=== PATIENT | male | born 1955 | race Caucasian/White ===

== ENCOUNTER → 2016-03-08 | Outpatient (CLI) | payer BC ==
--- NOTE | 2016-03-08 13:25 | XR ---
EXAMINATION TYPE: XR chest 2V DATE OF EXAM: 03/08/2016 9:53 AM COMPARISON: NONE HISTORY: Thoracic kyphosis, M40.204 TECHNIQUE: Frontal and lateral views of the chest are obtained. FINDINGS: There is marked chest wall deformity, there is been prior rib resection the third through fifth ribs laterally on the right with resulting volume loss in the upper aspect of the right hemitho rax greater than lower. There is no pneumothorax or pleural effusion evident, there is apical pleural thickening on the right. Cardiomediastinal silhouette, pulmonary vascularity and ruben within normal limits accounting for patient rotation. IMPRESSION: No acute cardiopulmonary process. Postop changes.
== END | disposition home or self-care (01) ==
LOC: RADXRMAIN 09:36
PROVIDERS: ATTEND Family Medicine
DX: M40.204 Unspecified kyphosis, thoracic region (principal); Z98.890 Other specified postprocedural states
CPT/HCPCS: 71020

== ENCOUNTER → 2016-05-03 | Outpatient (CLI) | payer BC ==
--- NOTE | 2016-05-03 12:14 | EST ---
DATE OF SERVICE: 05/03/2016 AGE: 60Y SEX: M HT: 71" WT: 175 lbs. Protocol Sage: X Other: Cardiolite Stress Stage: III Dur. of Exercise: 9:00 *Heart Rate Blood Pressure *Rest: 81 Rest: 195/93 * *Max. Achieved: 114 Maximum BP: 218/86 85% PMHR: 136 100% PMHR: 160 *METS: 10.0 INDICATIONS: Type 1 second degree heart block. MEDICATIONS: Multivitamin, baby aspirin. Baseline EKG shows sinus rhythm, normal axis, normal intervals. Patient exercised on Sage protocol for a total of 9 minutes, achieving 10 METs, 69% of predicted maximal heart rate without chest pain. The test had to be stopped at this stage because of EKG changes, fatigue and tiredness. At this level of workload, patient developed [address] segment depression. CONCLUSION: 1. Good exercise tolerance. 2. Abnormal EKG part of the stress test at submaximal workload. 3. Cardiolite portion of the stress test will be reported separately.
--- NOTE | 2016-05-03 13:57 | NM ---
EXAMINATION TYPE: NM stress cardiolite complete DATE OF EXAM: 05/03/2016 10:57 AM COMPARISON: NONE HISTORY: Av block 2n degree TECHNIQUE: After the intravenous administration of 10.6 mCi Tc 99m Sestamibi - Rest images obtained 60 minutes post injection. The patient exercised using a LALY protocol and 1 minute prior to peak exercise was injected with 27.2 mCi Tc 99m Sestamibi - Stress images obtained 30 minutes post injecti on. FINDINGS: Targeted heart rate was achieved during performance of the study. Review of stress and rest SPECT susanne ges demonstrates focal area of stress-induced reversibility involving the inferior and inferolateral myocardium.. Gated analysis shows normal wall motion with an estimated left ventricular ejection fra ction of 51 %. Report telephoned to the patient's referring physician. IMPRESSION: Positive for stress-induced reversible ischemia involving the inferior and inferolateral myocardium.
== END ==
LOC: RADNMMAIN 07:49
PROVIDERS: ATTEND Internal Medicine Cardiovascular Disease
DX: I44.1 Atrioventricular block, second degree (principal)
CPT/HCPCS: 93017; 78452; A9500

== ENCOUNTER → 2016-05-11 | Outpatient (CLI) | payer BC ==
--- NOTE | 2016-05-12 09:43 | ECHOF ---
Referral Reason:Systolic murmur R01.1 MEASUREMENTS -------- HEIGHT: 182.9 cm WEIGHT: 79.4 kg BP: IVSd: 1.3 cm (0.6 - 1.1) LVIDd: 3.6 cm (3.9 - 5.3) LVPWd: 1.2 cm (0.6 - 1.1) IVSs: 1.7 cm LVIDs: 2.3 cm LVPWs: 1.7 cm Ao Diam: 2.6 cm (2.0 - 3.7) AV Cusp: 1.0 cm (1.5 - 2.6) LA Diam: 1.8 cm (2.7 - 3.8) MV EXCURSION: 11.106 mm (> 18.000) MV EF SLOPE: 38 mm/s (70 - 150) EPSS: 0.7 cm MV E Lauro: 1.58 m/s MV DecT: 164 ms MV A Lauro: 1.48 m/s MV E/A Ratio: 1.07 AV maxP.95 mmHg AV meanP.04 mmHg AR PHT: 329 ms RAP: 5.00 mmHg RVSP: 13.79 mmHg FINDINGS -------- Sinus rhythm. This was a technically good study. There is mild concentric left ventricular hypertrophy. Overall left ventricular systolic function is normal with, an EF between 55 - 60 %. The right ventricle is normal in size and function. The left atrium is normal in size. The right atrium is normal in size. Aortic valve is trileaflet and is severely thickened. Trace amount of aortic regurgitation. There is moderate aortic stenosis present. Peak/mean gradient across the Aortic Valve is 28.95mmHg / 20.04mmHg. Can't exclude possible Bicuspid Aov. The mitral valve leaflets are mildly thickened. Mild mitral annular calcification present. Mild mitral regurgitation is present. Mild tricuspid regurgitation present. The right ventricular systolic pressure, as measured by Doppler, is 13.79mmHg. Pulmonic valve appears structurally normal. The aortic root size is normal. The pericardium is normal. CONCLUSIONS -------- 1. Sinus rhythm. 2. There is moderate aortic stenosis present. 3. Peak/mean gradient across the Aortic Valve is 28.95mmHg / 20.04mmHg. 4. Can't exclude possible Bicuspid Aov. 5. The mitral valve leaflets are mildly thickened. 6. Mild mitral annular calcification present. 7. Mild mitral regurgitation is present. 8. Mild tricuspid regurgitation present. 9. The right ventricular systolic pressure, as measured by Doppler, is 13.79mmHg. 10. Pulmonic valve appears structurally normal. 11. The aortic root size is normal. 12. This was a technically good study. 13. The pericardium is normal. 14. There is mild concentric left ventricular hypertrophy. 15. Overall left ventricular systolic function is normal with, an EF between 55 - 60 %. 16. The right ventricle is normal in size and function. 17. The left atrium is normal in size. 18. The right atrium is normal in size. 19. Aortic valve is trileaflet and is severely thickened. 20. Trace amount of aortic regurgitation. PLASTIC CUTTER: Nguyen Carmona RDCS
== END | disposition home or self-care (01) ==
LOC: RADECHMAIN 14:47
PROVIDERS: ATTEND Internal Medicine Cardiovascular Disease
DX: R01.1 Cardiac murmur, unspecified (principal)
CPT/HCPCS: 93306

== ENCOUNTER → 2016-09-15 | Outpatient (CLI) | payer BC ==
[2016-09-15 14:52] LABS: CH 26.2; CHCM 30.5; HCT 39.8 % (39.0-53.0); HDW 2.92; HGB 12.6 gm/dL (13.0-17.5); Hypochromasia Marked; MCH 27.1 pg (25.0-35.0); MCHC 31.5 g/dL (31.0-37.0); MCV 85.8 fL (80.0-100.0); Mean Platelet Volume 7.8; RBC 4.64 m/uL (4.30-5.90); RDW 15.8 % (11.5-15.5); WBC 8.8 k/uL (3.8-10.6)
[2016-09-15 15:00] LABS: Anion Gap 11 mmol/L; Blood Urea Nitrogen 14 mg/dL (9-20); Calcium 10.1 mg/dL (8.4-10.2); Carbon Dioxide 27 mmol/L (22-30); Chloride 103 mmol/L (98-107); Glucose 146 mg/dL (74-99); Non-African American GFR(MDRD) >60 (>60 ml/min/1.73 sqM); Potassium 4.7 mmol/L (3.5-5.1); Sodium 141 mmol/L (137-145)
== END ==
LOC: LABWHC1 14:18
PROVIDERS: ATTEND Nurse Practitioner Family
DX: I48.3 Typical atrial flutter (principal)
CPT/HCPCS: 36415; 80048; 85027

== ENCOUNTER 2018-06-08 09:54 | Day surgery (SDC) | payer BC ==
[2018-06-02 14:41] VITALS: BMI 25.1
[~2018-06-08 09:54] MED LIST: DEXAMETHASONE SOD PHOSPHATE 10 MG/ML 1 ML VIAL IV ONE; HEPARIN SODIUM,PORCINE 5,000 UNIT/ML 1 ML VIAL SQ ONE; LACTATED RINGERS 1,000 ML IV SCH; LIDOCAINE 1% 20 ML VIAL (10MG/ML) FOR IV START INTRADERMA PRN; MIDAZOLAM 2 MG/2 ML VIAL IV PRN; ONDANSETRON 4 MG/2 ML VIAL IVP ONE; Pre Op ABX Message 1 EACH MISC MISCELLANE ONE; fentaNYL (PF) 50 MCG/ML 2 ML AMP IV PRN
[2018-06-08 10:41] VITALS: RESP 16; TEMP 98.4
[2018-06-08] MEDS ORDERED: BUPIVACAIN-EPI 0.5%-1:200,000 30 ML VIAL SQ ONE ×2 (11:58)
[2018-06-08] MEDS ORDERED: PROPOFOL 10 MG/ML 20 ML VIAL IV ONE (13:36)
[2018-06-08] MEDS ORDERED: MIDAZOLAM 2 MG/2 ML VIAL ONE (13:36)
[2018-06-08] MEDS ORDERED: KETAMINE 10 MG/ML 20 ML VIAL ONE (13:36)
[2018-06-08] MEDS ORDERED: LIDOCAINE 1% INJ 10MG/ML (20 ML MDV) ONE (13:36)
[2018-06-08] MEDS ORDERED: fentaNYL (PF) 50 MCG/ML 2 ML AMP ONE (13:36)
[2018-06-08] MEDS ORDERED: SODIUM CHLORIDE 0.9% 50 ML with ceFAZolin (PMX-bag) 2,000 MG IV ONE ×2 (13:56)
[2018-06-08] MEDS ORDERED: BACITRACIN OINT 1 EACH PACKET TOPICAL ONE (14:13)
[2018-06-08] MEDS ORDERED: HYDROcodone/APAP 5-325MG 1 EACH TAB PO PRN (14:30)
[2018-06-08] MEDS ORDERED: NALOXONE 0.4 MG/ML 1 ML VIAL IV PRN (14:30)
--- NOTE | 2018-06-08 14:34 | P.PCN ---
Date of Procedure: 06/08/18 Procedure(s) Performed: PREOPERATIVE DIAGNOSIS: Upper back sebaceous cyst POSTOPERATIVE DIAGNOSIS: Same PROCEDURE: Excision SURGEON: Ania EBL: Minimal ANESTHESIA: Sedation COMPLICATIONS: None OPERATIVE PROCEDURE: Patient placed in the left decubitus position. The patient was sedated per anesthesia. The upper back was prepped and draped sterilely. An elliptical incision was made encompassing the draining sinus. Dissection through the subcutaneous tissues took place sharply. The patient's infected s ebaceous cyst sac was dissected fully using sharp dissection. The area was then irrigated. Size of the sebaceous cyst cavity 2.5 x 2 cm. Subcutaneous tissues were closed using 3-0 Vicryl sutures and the skin closed using 4-0 nylon sutures. Sterile dressings applied. DISPOSITION: Stable to recovery room
[2018-06-08 15:28] VITALS: BP 126/89; PULSE 75
== END 2018-06-08 15:36 | disposition home or self-care (01) ==
LOC: OR 09:54
PROVIDERS: ATTEND Surgery
DX: L72.0 Epidermal cyst (principal); I25.10 Atherosclerotic heart disease of native coronary artery without angina pectoris; E78.5 Hyperlipidemia, unspecified; Z95.1 Presence of aortocoronary bypass graft; Z85.118 Personal history of other malignant neoplasm of bronchus and lung; Z87.2 Personal history of diseases of the skin and subcutaneous tissue; Z79.82 Long term (current) use of aspirin; Z79.899 Other long term (current) drug therapy
CPT/HCPCS: 11403; 12031; J2250; J1644; J1100; J2405; J2001; J3010; J0690; J2704; 88304

== ENCOUNTER 2018-07-19 09:47 | Inpatient (IN) | payer BC ==
--- NOTE | 2018-07-19 10:09 | ED ---
SOB HPI - General Chief Complaint: Shortness of Breath Stated Complaint: SOB Time Seen by Provider: 07/19/18 09:56 Source: patient, RN notes reviewed Mode of arrival: ambulatory Limitations: no limitations - History of Present Illness Initial Comments: This is a 63-year-old male with a history of a three-way coronary artery bypass with valve replacement 2 years ago [facility] also with a history of a right lung resection at the age of 5 and 6 on 2 different occasions for a malignant tumor who states she's been having exertional dyspnea some shortness of breath last several days. He does state he was fishing he was in a cabinet had propane heater he states he felt better when he was outside of the cabin he got back last night so having some of the symptoms. 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 ROS Other: All systems not noted in ROS Statement are negative. 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,skin CA History of Any Multi-Drug Resistant Organisms: None Reported Past Surgical History: Coronary Bypass/CABG, Heart Catheterization Additional Past Surgical History / Comment(s): CABG-2016-04 vessel w/ aortic valve replacement,rt lung lower lobe and partial rib removal at ages 5 and 6 r/t-malignant tumors on lung,rib,muscle,skin Juan F removed Past Anesthesia/Blood Transfusion Reactions: No Reported Reaction Additional Past Anesthesia/Blood Transfusion Reaction / Comment(s): no known hx of blood transfusions Past Psychological History: No Psychological Hx Reported Smoking Status: Never smoker Past Alcohol Use History: None Reported Past Drug Use History: None Reported - Past Family History Mother Family Medical History: No Reported History General Exam - General Exam Comments Initial Comments: This a well-developed well-nourished awake alert oriented 3 male Limitations: no limitations General appearance: alert, in no apparent distress Head exam: Present: atraumatic, normocephalic, normal inspection Eye exam: Present: normal appearance, PERRL, EOMI. Absent: scleral icterus, conjunctival injection, periorbital swelling ENT exam: Present: normal exam, mucous membranes moist Neck exam: Present: normal inspection. Absent: tenderness, meningismus, lymphadenopathy Respiratory exam: Present: normal lung sounds bilaterally, other (Postop changes seen over the right chest wall with well-healed surgical scars and deformity noted.). Absent: respiratory distress, wheezes, rales, rhonchi, stridor Cardiovascular Exam: Present: normal rhythm, bradycardia, normal heart sounds, other (Occasional extrasystole). Absent: systolic murmur, diastolic murmur, rubs, gallop, clicks GI/Abdominal exam: Present: soft, normal bowel sounds. Absent: distended, tenderness, guarding, rebound, rigid Extremities exam: Present: normal inspection, full ROM, normal capillary refill. Absent: tenderness, pedal edema, joint swelling, calf tenderness Back exam: Present: normal inspection Neurological exam: Present: alert, oriented X3, CN II-XII intact Psychiatric exam: Present: normal affect, normal mood Skin exam: Present: warm, dry, intact, normal color. Absent: rash Course Vital Signs 07/19/18 07/19/18 07/19/18 09:50 11:54 13:33 Temperature 97.7 F 97.9 F Pulse Rate 41 L 37 L 37 L Respiratory 16 20 16 Rate Blood Pressure 183/66 169/63 145/51 O2 Sat by Pulse 98 99 99 Oximetry - Reevaluation(s) Reevaluation #1: 07/19/18 13:55 clinical research monitor: Medication bradycardia no PACs or PVCs seen on my examination heart rate was 37. Medical Decision Making - Lab Data Result diagrams: 07/19/18 10:30 07/19/18 10:30 Lab Results 07/19/18 07/19/18 07/19/18 Range/Units 10:30 10:30 10:30 WBC 8.9 (3.8-10.6) k/uL RBC 4.42 (4.30-5.90) m/uL Hgb 13.8 (13.0-17.5) gm/dL Hct 40.8 (39.0-53.0) % MCV 92.3 (80.0-100.0) fL MCH 31.2 (25.0-35.0) pg MCHC 33.8 (31.0-37.0) g/dL RDW 13.7 (11.5-15.5) % Plt Count 223 (150-450) k/uL Neutrophils % 75 % Lymphocytes % 15 % Monocytes % 7 % Eosinophils % 1 % Basophils % 1 % Neutrophils # 6.6 (1.3-7.7) k/uL Lymphocytes # 1.3 (1.0-4.8) k/uL Monocytes # 0.6 (0-1.0) k/uL Eosinophils # 0.1 (0-0.7) k/uL Basophils # 0.1 (0-0.2) k/uL PT 10.1 (9.0-12.0) sec INR 0.9 (<1.2) APTT 24.0 (22.0-30.0) sec D-Dimer 0.41 (<0.60) mg/L FEU Carbon Monoxide, Quant (<10.0) % Sodium 140 (137-145) mmol/L Potassium 4.7 (3.5-5.1) mmol/L Chloride 107 (98-107) mmol/L Carbon Dioxide 25 (22-30) mmol/L Anion Gap 8 mmol/L BUN 13 (9-20) mg/dL Creatinine 0.69 (0.66-1.25) mg/dL Est GFR (CKD-EPI)AfAm >90 (>60 ml/min/1.73 sqM) Est GFR (CKD-EPI)NonAf >90 (>60 ml/min/1.73 sqM) Glucose 81 (74-99) mg/dL Calcium 10.4 H (8.4-10.2) mg/dL Magnesium 2.3 (1.6-2.3) mg/dL Total Bilirubin 0.8 (0.2-1.3) mg/dL AST 40 (17-59) U/L ALT 57 (21-72) U/L Alkaline Phosphatase 100 (38-126) U/L Creatine Kinase 104 (55-170) U/L Troponin I (0.000-0.034) ng/mL NT-Pro-B Natriuret Pep pg/mL Total Protein 7.2 (6.3-8.2) g/dL Albumin 4.5 (3.5-5.0) g/dL 07/19/18 07/19/18 07/19/18 Range/Units 10:30 10:30 10:30 WBC (3.8-10.6) k/uL RBC (4.30-5.90) m/uL Hgb (13.0-17.5) gm/dL Hct (39.0-53.0) % MCV (80.0-100.0) fL MCH (25.0-35.0) pg MCHC (31.0-37.0) g/dL RDW (11.5-15.5) % Plt Count (150-450) k/uL Neutrophils % % Lymphocytes % % Monocytes % % Eosinophils % % Basophils % % Neutrophils # (1.3-7.7) k/uL Lymphocytes # (1.0-4.8) k/uL Monocytes # (0-1.0) k/uL Eosinophils # (0-0.7) k/uL Basophils # (0-0.2) k/uL PT (9.0-12.0) sec INR (<1.2) APTT (22.0-30.0) sec D-Dimer (<0.60) mg/L FEU Carbon Monoxide, Quant 1.4 (<10.0) % Sodium (137-145) mmol/L Potassium (3.5-5.1) mmol/L Chloride (98-107) mmol/L Carbon Dioxide (22-30) mmol/L Anion Gap mmol/L BUN (9-20) mg/dL Creatinine (0.66-1.25) mg/dL Est GFR (CKD-EPI)AfAm (>60 ml/min/1.73 sqM) Est GFR (CKD-EPI)NonAf (>60 ml/min/1.73 sqM) Glucose (74-99) mg/dL Calcium (8.4-10.2) mg/dL Magnesium (1.6-2.3) mg/dL Total Bilirubin (0.2-1.3) mg/dL AST (17-59) U/L ALT (21-72) U/L Alkaline Phosphatase (38-126) U/L Creatine Kinase (55-170) U/L Troponin I <0.012 (0.000-0.034) ng/mL NT-Pro-B Natriuret Pep 706 pg/mL Total Protein (6.3-8.2) g/dL Albumin (3.5-5.0) g/dL - EKG Data -: EKG Interpreted by Me EKG shows normal: sinus rhythm (Says bradycardia QRS 12 QT since QTC 608/678 low-voltage nonspecific anterior changes prolonged QT heart rate approximately 35) - Radiology Data Radiology results: report reviewed (I did review the imaging and report no definite evidence of acute findings.), image reviewed Disposition Clinical Impression: Symptomatic bradycardia, Dyspnea Disposition: ADMITTED IP TO THIS [facility] Condition: Stable Referrals: Terence Regan DO [Primary Care Provider] - 1-2 days
--- NOTE | 2018-07-19 11:01 | XR ---
EXAMINATION TYPE: XR chest 2V DATE OF EXAM: 07/19/2018 COMPARISON: Prior chest x-ray 03/08/2016 HISTORY: Difficulty breathing, shortness of breath TECHNIQUE: Frontal and lateral views of the chest are obtained. FINDINGS: Chest wall deformity, post median sternotomy changes are again noted. Heart size is though t to be increased although patient is rotated which may accentuate appearance. There is interval blun ting of the left costophrenic angle. No evident pneumothorax. There are overlying cardiac leads, yeni ent is post cardiac valve replacement. IMPRESSION: Interval development of a left pleural effusion, bodies could be due to chronic pleural reaction, atelectasis versus scarring. Postop changes.
[2018-07-19 11:21] LABS: Basophils # (A) 0.1 k/uL (0-0.2); Basophils % (A) 1 %; Eosinophils # (A) 0.1 k/uL (0-0.7); Eosinophils % (A) 1 %; HCT 40.8 % (39.0-53.0); HGB 13.8 gm/dL (13.0-17.5); Lymphocytes # (A) 1.3 k/uL (1.0-4.8); Lymphocytes % (A) 15 %; MCH 31.2 pg (25.0-35.0); MCHC 33.8 g/dL (31.0-37.0); MCV 92.3 fL (80.0-100.0); Mean Platelet Volume 8.6; Monocytes # (A) 0.6 k/uL (0-1.0); Monocytes % (A) 7 %; Neutrophils # (A) 6.6 k/uL (1.3-7.7); Neutrophils % (A) 75 %; Platelet Count 223 k/uL (150-450); RBC 4.42 m/uL (4.30-5.90); RDW 13.7 % (11.5-15.5); WBC 8.9 k/uL (3.8-10.6)
[2018-07-19 11:28] LABS: ALT 57 U/L (21-72); AST 40 U/L (17-59); Albumin 4.5 g/dL (3.5-5.0); Alkaline Phosphatase 100 U/L (38-126); Anion Gap 8 mmol/L; Blood Urea Nitrogen 13 mg/dL (9-20); Calcium 10.4 mg/dL (8.4-10.2); Carbon Dioxide 25 mmol/L (22-30); Chloride 107 mmol/L (98-107); Creatine Kinase 104 U/L (55-170); Glucose 81 mg/dL (74-99); Magnesium 2.3 mg/dL (1.6-2.3); Potassium 4.7 mmol/L (3.5-5.1); Sodium 140 mmol/L (137-145); Total Bilirubin 0.8 mg/dL (0.2-1.3); Total Protein 7.2 g/dL (6.3-8.2)
[2018-07-19 11:54] LABS: D-Dimer 0.41 mg/L FEU (<0.60); INR 0.9 (<1.2); Prothrombin Time 10.1 sec (9.0-12.0)
[2018-07-19] MEDS ORDERED: NALOXONE 0.4 MG/ML 1 ML VIAL IV PRN (13:56)
--- NOTE | 2018-07-19 15:18 | P.HPIM ---
History of Present Illness H&P Date: 07/19/18 Chief Complaint: Severe dyspnea and shortness of breath, symptomatic severe bradycardia, ath 63-year-old male one of Dr. 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 Patient seen Dr. Queen edge sander at [facility] and before his open heart surgery was seen by rotor blade installer at [facility] for a can degree heart block might require pacemaker at the time and with his open heart surgery the severity of the bradycardia and second-degree had resolved done well for the last 20 have few years. Patient has been having worsening dyspnea and shortness of breath with minimal exertion with severe tiredness fatigue no chest pain but positive significant shortness of breath no cough or wheezes no syncope so far patient is very tired week and having fatigue symptoms. Ended up coming to the emergency department at [facility] his pulse on EKG and site monitor was very slow running in the 30s symptomatic patient also had second-degree heart block. Laboratory testing showed mildly elevated calcium level chest x-ray showed interval development of left pleural effusion with a chronic pleural reaction and atelectasis with change post surgery from his right lung resection. Thyroid testing will be added patient will be hospitalized he monitor overnight will be seen cardiology CK with troponin will be done and if remained bradycardic symptomatic patient might require pacemaker. Review of Systems CONSTITUTIONAL: Well-developed no acute respiratory distress. EYES: No icterus sclerae, no conjunctivitis. EARS, NOSE, MOUTH, THROAT, and FACE: No sore throat, lymphadenopathy, carotid bruits or deformity. RESPIRATORY: Positive dyspnea and shortness of breath. CARDIOVASCULAR: Positive bradycardia palpitation no angina. GASTROINTESTINAL: No Abd pain, Nausea or vomiting, no Diarrhea or constipation, No GI Bleed, no distention or masses. GENITOURINARY: Negative for Hematuria or UTI, no kidney stones. INTEGUMENT/BREAST: Negative for any muscular injury with mild osteoarthritis.. HEMATOLOGIC/LYMPHATIC: Negative for bleed or purpura. MUSCULOSKELTAL: Negative for Myalgia or arthralgia. NEURLOGICAL: No LOC, Sz or syncope, blurred vision dizziness or abnormality.. BEHAVIORAL/PSYCH: Negative. ENDOCRINE: Negative. 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,skin CA History of Any Multi-Drug Resistant Organisms: None Reported Past Surgical History: Coronary Bypass/CABG, Heart Catheterization Additional Past Surgical History / Comment(s): CABG-2016-04 vessel w/ aortic valve replacement,rt lung lower lobe and partial rib removal at ages 5 and 6 r/t-malignant tumors on lung,rib,muscle,skin Juan F removed Past Anesthesia/Blood Transfusion Reactions: No Reported Reaction Additional Past Anesthesia/Blood Transfusion Reaction / Comment(s): no known hx of blood transfusions Past Psychological History: No Psychological Hx Reported Smoking Status: Never smoker Past Alcohol Use History: None Reported Past Drug Use History: None Reported - Past Family History Mother Family Medical History: No Reported History Medications and Allergies Home Medications Medication Instructions Recorded Confirmed Type Aspirin 81 mg PO DAILY 06/02/18 07/19/18 History Atorvastatin [Lipitor] 40 mg PO DAILY 06/02/18 07/19/18 History Multivitamins, Thera [Multivitamin 1 tab PO DAILY 06/02/18 07/19/18 History (formulary)] Allergies Allergy/AdvReac Type Severity Reaction Status Date / Time No Known Allergies Allergy Verified 07/19/18 09:58 Physical Exam Vitals: Vital Signs Temp Pulse Resp BP Pulse Ox 07/19/18 13:33 97.9 F 37 L 16 145/51 99 07/19/18 11:54 37 L 20 169/63 99 07/19/18 09:50 97.7 F 41 L 16 183/66 98 Intake and Output 07/19/18 07/19/18 07/19/18 06:59 14:59 22:59 Other: Weight 83.915 kg General Appearance: Alert, cooperative, no distress, appears stated age. Neck HEENT: Supple, no lymphadenopathy, no thyroid enlargement, no carotid bruits. Lungs: Decreased breath sounds specially in the right side with fine rhonchi no crackles or wheezes. Chest Wall: Chest wall deformity with his resection of the right side with a scar tissue on the posterior part of the lung and the scapular the same time with no breath sound of the right side left side had significant decrease expansion. Heart: Irregular rhythm and rate S1-S2 positive severe bradycardia positive S3 positive aortic valve click.. Back: Symmetric, no curvature, ROM normal, no CVA tenderness. Abdomen: Soft, non-tender, bowel sounds active all four quadrants, no masses, no organomegaly. Extremities: Extremities normal, atraumatic, no cyanosis or edema. Pulses: 2+ and symmetric. Skin: Skin color, texture, tugor normal, no rashes or lesions. Neurologic: Alert oriented x3 cranial nerves II through XII intact, no motor deficit, no abnormal balance or gait. Results CBC & Chem 7: 07/19/18 10:30 07/19/18 10:30 Labs: Abnormal Lab Results - Last 24 Hours (Table) 07/19/18 Range/Units 10:30 Calcium 10.4 H (8.4-10.2) mg/dL Thrombosis Risk Factor Assmnt - DVT/VTE Prophylaxis DVT/VTE Prophylaxis: Pharmacologic Prophylaxis ordered, Mechanical Prophylaxis ordered Assessment and Plan Plan: 1 Severe dyspnea and shortness of breath: Most likely from severe bradycardia, patient be hospitalized continue O2 supportive care watch for any other secondary reason at this point no sign of infection with his significant decrease lung volumes with his right sided dissection patient had mild to moderate degree of restrictive lung disease and mild obstructive lung disease but no symptoms up till now. 2 severe symptomatic bradycardia: With second-degree AV block, patient is known to have history of coronary artery disease not a clear whether this is a primary or secondary to other phenomenon of his coronary artery patient might require further testing cardiovascular further intervention, patient be seen cardiology whether to go for just a plain stress test and echo or any further testing to be determined by cardiology also will be interesting to watch patient pulse rate through the night and see how slow his pulse will be. 3 hyperlipidemia: Patient is on atorvastatin continue medication. 4 mild hypercalcemia not explained will repeat calcium level and ionized calcium along with PTH with the blood work tomorrow. 5 BPH: Watch for any urinary retention. 6 GI prophylaxis: Patient will be on Pepcid 20 mg daily. 7 DVT prophylaxis: Knee-high MIHAELA hose early mobilization and if needed subcutaneous heparin will be done. CODE STATUS: Full code. Admit patient to inpatient status for more than 2 nights.
--- NOTE | 2018-07-19 17:17 | P.CRDCN ---
History of Present Illness Consult date: 07/19/18 Requesting physician: Randall Hamlin Reason for Consult (text): Bradycardia Chief complaint: Shortness of breath History of present illness: This is a pleasant 63-year-old gentleman who has a past medical history significant for three-vessel coronary artery bypass grafting surgery with aortic valve replacement performed at [facility], performed a few years ago, he does also have a history of hyperlipidemia, he is a nondiabetic, no hypertension, nonsmoker. Patient also has a history of a right- sided lung malignant tumor, for which she underwent AP resection with kassandra nstruction on the right side, this was when he was a child, overall he has done very well. He follows with Dr. Queen at [facility]. Patient overall is quite physically active, and he usually wears his foot that all of the time to monitor the amount of exercise he is getting. Apparently the patient went up [place], on [place] trip, he states that he became quite short of breath just attempting to do minimally exertional activities. It was noted on his Cipro at that his heart rate was running in the 30-40 range, patient became concerned and came home. He denies having any chest discomfort, no dizziness or lightheadedness, but does state that he's feeling extremely tired over the past couple of weeks. According to the patient, he had been told in the past to have a very slow heartbeat, this was at the time prior to his bypass surgery, he was seen by an magnesium mill operator at [place], who felt that his problem was more related to coronary artery disease, and subsequently the patient underwent bypass surgery. He never had a pacemaker placed at that time. His EKG on presentation here shows a second-degree heart block type II with a heart rate in the 40s. His chest x-ray shows interval development of a left-sided pleural effusion. Blood pressure 145/50 with a heart rate in the 30s, 99% on 2 L of oxygen. White blood cell count 8.9, hemoglobin 13.8, platelet count 223. D- dimer 0.4. Sodium 140, potassium 4.7, BUN 1 and creatinine 0.6. Sodium 140, potassium 4.7, BUN 13 and creatinine 0.6, magnesium 2.3, troponin 0.012. BNP level 706. At the time of my examination in the emergency room, patient is sitting up at bedside, denies any shortness of breath at present, does feel tired. Continues to be in a second-degree type II heart block with a heart rate in the 30s. 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,skin CA History of Any Multi-Drug Resistant Organisms: None Reported Past Surgical History: Coronary Bypass/CABG, Heart Catheterization Additional Past Surgical History / Comment(s): CABG-2016-04 vessel w/ aortic valve replacement,rt lung lower lobe and partial rib removal at ages 5 and 6 r/t-malignant tumors on lung,rib,muscle,skin Juan F removed Past Anesthesia/Blood Transfusion Reactions: No Reported Reaction Additional Past Anesthesia/Blood Transfusion Reaction / Comment(s): no known hx of blood transfusions Past Psychological History: No Psychological Hx Reported Smoking Status: Never smoker Past Alcohol Use History: None Reported Past Drug Use History: None Reported - Past Family History Mother Family Medical History: No Reported History Medications and Allergies Home Medications Medication Instructions Recorded Confirmed Type Aspirin 81 mg PO DAILY 06/02/18 07/19/18 History Atorvastatin [Lipitor] 40 mg PO DAILY 06/02/18 07/19/18 History Multivitamins, Thera [Multivitamin 1 tab PO DAILY 06/02/18 07/19/18 History (formulary)] Allergies Allergy/AdvReac Type Severity Reaction Status Date / Time No Known Allergies Allergy Verified 07/19/18 09:58 Physical Exam Vitals: Vital Signs Temp Pulse Resp BP Pulse Ox 07/19/18 15:35 98 F 37 L 18 145/51 99 07/19/18 13:33 97.9 F 37 L 16 145/51 99 07/19/18 11:54 37 L 20 169/63 99 07/19/18 09:50 97.7 F 41 L 16 183/66 98 Intake and Output 07/19/18 07/19/18 07/19/18 06:59 14:59 22:59 Other: Weight 83.915 kg PHYSICAL EXAMINATION: GENERAL: 63-year-old gentleman in no acute distress at the time of my examination HEENT: Head is atraumatic, normocephalic. Pupils equal, round. Sclera anicteric. Conjunctiva are clear. Mucous membranes of the mouth are moist. Neck is supple. There is no elevated jugular venous pressure. No carotid bruit is heard. HEART EXAMINATION: S1 and S2, positive aortic valve click is heard CHEST EXAMINATION: Lungs are clear with diminished air entry bilaterally, there is scar tissue noted on the posterior part of the lung at the scapula region on the right side ABDOMEN: Soft, nontender. Bowel sounds are heard. No organomegaly noted. EXTREMITIES: 2+ peripheral pulses with no evidence of peripheral edema and no calf tenderness noted. NEUROLOGIC patient is awake, alert and oriented 3 . . Results 07/19/18 10:30 07/19/18 10:30 Cardiac Enzymes 07/19/18 07/19/18 Range/Units 10:30 10:30 AST 40 (17-59) U/L Troponin I <0.012 (0.000-0.034) ng/mL Coagulation 07/19/18 Range/Units 10:30 PT 10.1 (9.0-12.0) sec APTT 24.0 (22.0-30.0) sec CBC 07/19/18 Range/Units 10:30 WBC 8.9 (3.8-10.6) k/uL RBC 4.42 (4.30-5.90) m/uL Hgb 13.8 (13.0-17.5) gm/dL Hct 40.8 (39.0-53.0) % Plt Count 223 (150-450) k/uL Comprehensive Metabolic Panel 07/19/18 Range/Units 10:30 Sodium 140 (137-145) mmol/L Potassium 4.7 (3.5-5.1) mmol/L Chloride 107 (98-107) mmol/L Carbon Dioxide 25 (22-30) mmol/L BUN 13 (9-20) mg/dL Creatinine 0.69 (0.66-1.25) mg/dL Glucose 81 (74-99) mg/dL Calcium 10.4 H (8.4-10.2) mg/dL AST 40 (17-59) U/L ALT 57 (21-72) U/L Alkaline Phosphatase 100 (38-126) U/L Total Protein 7.2 (6.3-8.2) g/dL Albumin 4.5 (3.5-5.0) g/dL Current Medications Generic Name Dose Route Start Last Admin Trade Name Freq PRN Reason Stop Dose Admin Aspirin 81 mg 07/20/18 09:00 Aspirin PO DAILY [facility] Atorvastatin Calcium 40 mg 07/20/18 09:00 Lipitor PO DAILY JASON Famotidine 20 mg 07/20/18 09:00 Pepcid PO DAILY JASON Sodium Chloride 1,000 mls @ 20 mls/hr 07/19/18 14:00 Saline 0.9% IV .Q24H JASON Multivitamins 1 each 07/20/18 09:00 Theragran PO DAILY JASON Naloxone HCl 0.2 mg 07/19/18 13:56 Narcan IV Q2M PRN Opioid Reversal Intake and Output 07/19/18 07/19/18 07/19/18 06:59 14:59 22:59 Other: Weight 83.915 kg Patient Weight 07/20/18 06:59 Weight 83.915 kg 07/19/18 10:30 07/19/18 10:30 EKG Interpretations (text) EKG shows a second-degree type II heart block with a heart rate in the 40s Assessment and Plan Plan: Assessment and plan #1 symptoms of exertional dyspnea with associated fatigue and tiredness, could be secondary to severe bradycardia. Patient is in second degree type II heart block #2 hyperlipidemia #3 known history of coronary artery disease with prior triple vessel coronary artery bypass grafting surgery and tissue aortic valve replacement a few years ago at [facility] #4 hyperlipidemia Plan We will obtain an echocardiogram with Doppler study as well as a TSH level. Patient is currently not on any rate lowering medications at home. It has been explained to the patient and his that he may need to undergo implantation of a permanent pacemaker. We will continue to monitor the patient and further recommendations then will be made. DNP note has been reviewed, I agree with a documented findings and plan of care. Patient was seen and examined.
[2018-07-19 18:24] VITALS: BMI 25.7
[2018-07-19] MEDS: SODIUM CHLORIDE 0.9% 1,000 ML IV SCH (18:28)
[2018-07-20] MEDS ORDERED: ceFAZolin IN SWFI 2 GM/20 ML SYRINGE IVP ONE (07:45)
[2018-07-20] MEDS ORDERED: SODIUM CHLORIDE 0.9% 1,000 ML IV SCH (07:45)
[2018-07-20] MEDS: ATORVASTATIN 40 MG TAB PO SCH (09:01)
[2018-07-20] MEDS: FAMOTIDINE 20 MG TAB PO SCH (09:01)
[2018-07-20] MEDS: ASPIRIN 81 MG PO SCH (09:01)
[2018-07-20] MEDS: MULTIVITAMINS, THERA 1 EACH TAB PO SCH (09:03)
[2018-07-20] MEDS ORDERED: PROPOFOL 10 MG/ML 20 ML VIAL IV ONE (10:04)
[2018-07-20] MEDS ORDERED: fentaNYL (PF) 50 MCG/ML 2 ML AMP ONE (10:04)
[2018-07-20] MEDS ORDERED: MIDAZOLAM 2 MG/2 ML VIAL ONE (10:04)
[2018-07-20] MEDS ORDERED: IV FLUID CONTINUATION 400 ML IV ONE ×2 (10:10)
[2018-07-20] MEDS ORDERED: LIDOCAINE 1% INJ 10MG/ML (20 ML MDV) ONE (10:33)
--- NOTE | 2018-07-20 10:33 | PN ---
PROGRESS NOTE Mr. Alvarez is a 63-year-old male with a history of aortic valve replacement and coronary artery bypass grafting, who presented with symptoms of progressive dyspnea and fatigue, was noted to be an episode of 2-1 conduction and at times complete heart block. He had some dyspnea with mild activity yesterday. He has no syncope. No chest pain. There is no evidence of ventricular ectopic activity. He continues to be at this time on aspirin once a day and Lipitor 40 mg daily. PHYSICAL EXAMINATION: VITAL SIGNS: Blood pressure 160/60 with a heart rate in the 40s. LUNGS: Clear. HEART: Regular rate and rhythm, S1, S2. No S3 with systolic ejection murmur. No diastolic murmur. No rub. ABDOMEN: Soft, nontender. EXTREMITIES: No edema. LAB DATA: Lab data revealed troponin less than 0.012. His TSH is 2.5, hemoglobin of 13.8. IMPRESSION: 1. Complete heart block with episode of 2-1 conduction as well, consistent with high- grade AV block. 2. Status post coronary artery bypass grafting, aortic valve replacement. 3. Hyperlipidemia. RECOMMENDATION: The patient would require permanent pacemaker implantation today. He was seen by Dr. Ocasio. He will undergo the procedure today. We will review the results of his echocardiogram. Depending on his progress, further recommendations will be made. MMODL / IJN: [id number] /
--- NOTE | 2018-07-20 10:34 | P.PN ---
Progress Note - Text Patient interviewed. Chart reviewed Presented with symptoms of shortness of breath tiredness and fatigue with a very slow heart rate Thinking back he states that he's been having these symptoms for some time but they were intermittent. This is been going on for at least 2 years nightly Twelve-lead ECG shows sinus rhythm 2-1 AV block narrow QRS ST segment elevation with T-wave inversion in V1 and V2 2-D echo shows overall preserved LV systolic function with thickening of the septum and anterior wall with a very localized area of dyskinesis Bioprosthetic valve in stable position Normal potassium Suggest In view of 2-1 AV block with severe bradycardia, without any reversible cause I would recommend permanent pacing The issues are that he has a high risk of 100% RV pacing in the future with a standard pacing system hence I would recommend biventricular pacing either with physiologic septal pacing or LV pacing He also has a clear thin area of the septum with localized dyskinesis despite the fact that his overall LV function is preserved I will implant an ICD lead in place of and RV pacing lead A biventricular pacing system will be implanted Beta blockers thereafter Discussed with family and patient
[2018-07-20] MEDS ORDERED: IOPAMIDOL-250 50ML BTL IV ONE (10:37)
[2018-07-20] MEDS ORDERED: LIDOCAINE 1% INJ 10MG/ML (20 ML MDV) SQ ONE (10:43)
[2018-07-20] MEDS: ceFAZolin 1,000 MG in SODIUM CHLORIDE 0.9% IRRIGATIO 250 ML IRRIGATION ONE ×2 (10:46→12:33)
[2018-07-20] MEDS ORDERED: ceFAZolin IN SWFI 2 GM/20 ML SYRINGE IVP STA (12:58)
[2018-07-20] MEDS ORDERED: ACETAMINOPHEN TAB 325 MG TAB PO PRN ×2 (14:59→15:01)
[2018-07-20] MEDS ORDERED: ACETAMINOPHEN IV (For NPO) 1,000 MG in EMPTY BAG 1 BAG IVPB ONE (15:01)
[2018-07-20] MEDS ORDERED: HYDROcodone/APAP 5-325MG 1 EACH TAB PO PRN (15:01)
[2018-07-20] MEDS: ceFAZolin IN SWFI 2 GM/20 ML SYRINGE IVP SCH ×2 (15:43→22:02)
[2018-07-20] MEDS: SODIUM CHLORIDE 0.9% 1,000 ML IV SCH ×2 (15:43→15:44)
--- NOTE | 2018-07-20 15:55 | P.PN ---
Subjective Progress Note Date: 07/20/18 63-year-old male one of Dr. Castro patient with past medical history of atherosclerotic heart disease post triple bypass few years ago at [facility] also has known to have valvular heart disease post aortic valve placement and right-sided lung lower lobe malignant tumor post re section with reconstruction of the muscle in the rib in the right side done twice at age 5 and 6 when he was baby patient had survived been done well. Patient seen Dr. Queen livestock nutritionist at [facility] and before his open heart surgery was seen by atomizer assembler at [facility] for a can degree heart block might require pacemaker at the time and with his open heart surgery the severity of the bradycardia and second-degree had resolved done well for the last 20 have few years. Patient has been having worsening dyspnea and shortness of breath with minimal exertion with severe tiredness fatigue no chest pain but positive significant shortness of breath no cough or wheezes no syncope so far patient is very tired week and having fatigue symptoms. Ended up coming to the emergency department at [facility] his pulse on EKG and equipment monitor phototypesetting was very slow running in the 30s symptomatic patient also had second-degree heart block. Laboratory testing showed mildly elevated calcium level chest x-ray showed interval development of left pleural effusion with a chronic pleural reaction and atelectasis with change post surgery from his right lung resection. Thyroid testing will be added patient will be hospitalized he monitor overnight will be seen cardiology CK with troponin will be done and if remained bradycardic symptomatic patient might require pacemaker. 07/20: Patient denies any new complaints. He denies any chest pain, shortness of breath, palpitations. He is scheduled for pacemaker implantation today with Dr. Ocasio. Multiple family members are at the bedside and all questions have been answered. Patient has been afebrile, heart rate was in the 40s, blood pressure 160/69, pulse ox 97% on room air. A TSH was 2.500. Objective - Vital Signs Vital signs: Vital Signs Temp 98.6 F 07/20/18 04:00 Pulse 43 L 07/20/18 04:00 Resp 18 07/20/18 04:00 BP 160/69 07/20/18 04:00 Pulse Ox 97 07/20/18 04:00 Intake & Output 07/19/18 07/20/18 07/20/18 18:59 06:59 18:59 Intake Total 240 Output Total 600 Balance -360 Weight 83.915 kg 83.1 kg Intake: Oral 240 Output: Urine 600 Other: # Voids 1 - Exam Review of Systems CONSTITUTIONAL: Well-developed no acute respiratory distress. EYES: No icterus sclerae, no conjunctivitis. EARS, NOSE, MOUTH, THROAT, and FACE: No sore throat, lymphadenopathy, carotid bruits or deformity. RESPIRATORY: no dyspnea and shortness of breath. CARDIOVASCULAR: Positive bradycardia no palpitation no angina. GASTROINTESTINAL: No Abd pain, Nausea or vomiting, no Diarrhea or constipation, No GI Bleed, no distention or masses. GENITOURINARY: Negative for Hematuria or UTI, no kidney stones. INTEGUMENT/BREAST: Negative for any muscular injury with mild osteoarthritis.. HEMATOLOGIC/LYMPHATIC: Negative for bleed or purpura. MUSCULOSKELTAL: Negative for Myalgia or arthralgia. NEURLOGICAL: No LOC, Sz or syncope, blurred vision dizziness or abnormality.. BEHAVIORAL/PSYCH: Negative. ENDOCRINE: Negative. General Appearance: Alert, cooperative, no distress, appears stated age. Sitting on the edge of the bed. Neck HEENT: Supple, no lymphadenopathy, no thyroid enlargement, no carotid bruits. Lungs: Decreased breath sounds specially in the right side with fine rhonchi no crackles or wheezes. Chest Wall: Chest wall deformity with his resection of the right side with a scar tissue on the posterior part of the lung and the scapular the same time with no breath sound of the right side left side had significant decrease expansion. Heart: Irregular rhythm and rate S1-S2 positive severe bradycardia positive S3 positive aortic valve click.. Back: Symmetric, no curvature, ROM normal, no CVA tenderness. Abdomen: Soft, non-tender, bowel sounds active all four quadrants, no masses, no organomegaly. Extremities: Extremities normal, atraumatic, no cyanosis or edema. Pulses: 2+ and symmetric. Skin: Skin color, texture, tugor normal, no rashes or lesions. Neurologic: Alert oriented x3 cranial nerves II through XII intact, no motor deficit, no abnormal balance or gait. - Labs CBC & Chem 7: 07/19/18 10:30 07/19/18 10:30 Labs: Abnormal Lab Results - Last 24 Hours (Table) 07/19/18 Range/Units 10:30 Calcium 10.4 H (8.4-10.2) mg/dL Assessment and Plan Plan: 1 Severe dyspnea and shortness of breath: Most likely from severe bradycardia, patient is scheduled for pacemaker implantation today. 2 severe symptomatic bradycardia: With second-degree AV block, patient is known to have history of coronary artery disease. 3 hyperlipidemia: Patient is on atorvastatin continue medication. 4 mild hypercalcemia not explained will repeat calcium level and ionized calcium along with PTH with the blood work tomorrow. 5 BPH: Watch for any urinary retention. 6 GI prophylaxis: Patient will be on Pepcid 20 mg daily. 7 DVT prophylaxis: Knee-high MIHAELA hose early mobilization and if needed subcutaneous heparin will be done. CODE STATUS: Full code. Discharge plan: Home Impression and plan of care have been directed as dictated by the signing physician. Mendy Padilla nurse practitioner acting as scribe for signing physician.
[2018-07-20] MEDS ORDERED: ceFAZolin IN SWFI 2 GM/20 ML SYRINGE IVP SCH (16:00)
[2018-07-20] MEDS: METOPROLOL SUCCINATE (ER) 50 MG TAB.ER.24H PO SCH (18:54)
--- NOTE | 2018-07-20 22:53 | PCN ---
PROCEDURE NOTE Mr. Alvarez is a 63-year-old male patient who presented with weakness and tiredness and a very slow heart rate. He was found to be in third-degree AV block with an escape rhythm in the 30s. He was quite symptomatic. There were no triggering factors. Potassium was normal. Electrolytes were normal. He was not on any drugs that could cause bradycardia. He has a history of coronary artery bypass grafting as well as aortic valve replacement. His 12-lead ECG also showed changes consistent with an aneurysm in the septal and anteroseptal leads, which was confirmed on 2D echo, although his overall LV function was 60%. This area was thinned. The anterior septum was thinned and actually dyskinetic, but it is a small localized area. He has a bioprosthetic aortic valve in place. His escape rhythm is a narrow QRS. Since with standard pacing his RV pacing percentage would be high, we decided to proceed with biventricular pacing, either with physiologic septal pacing or with LV pacing. The patient was brought to the EP lab in a fasting state. Written informed consent was obtained prior to the procedure. The left shoulder area was prepped and draped as per protocol. Lidocaine 1% was used for local anesthesia. A 4 cm incision was made parallel to the deltopectoral groove, about 1.5 cm medial to it. The incision was carried down to the level of the pectoralis muscle. A subfascial pocket was made. Hemostasis was assured. The left axillary vein was accessed at 3 points and later an extra access was performed. First, an RV lead was placed. This was a single-coil ICD lead used for pacing only. DF pin was capped. This was positioned in the RV apex. This was a [employer], model #7122, 65 cm in length, and serial #[id number]. The R- waves were 10.7 mV. Pacing impedance of 515 ohms. Pacing threshold 0.4 V at 0.5 milliseconds. Ten-volt test was negative. Next a His bundle lead was positioned in the His bundle area and screwed in. Threshold initially was 3.1 V at 1.5 milliseconds. Selective pacing was noted. Next, the atrial lead was screwed in the right atrial appendage. This was a [employer], model #2088TC, 52 cm in length, and serial #[id number]. The P-waves were 2.4 mV. Pacing impedance 447 ohms. The threshold was 0.75 V at 0.5 milliseconds. Ten-volt test was negative. The leads were secured to the underlying pectoralis fascia using 2 nonabsorbable sutures. Pocket was irrigated with antibiotic solution. A biventricular pacemaker was implanted. This was a [employer], model #PM322, serial #[id number]. However, when this pacemaker was interrogated again, the His bundle lead thresholds were high at greater than 5 V at 1 millisecond. Fluoroscopy did not reveal any dislodgement of the lead. The lead was very stable and moving with the cardiac motion. However, since the thresholds were high, the decision was made to implant an LV lead. Access was obtained once again. The coronary sinus was accessed and venogram was performed. The lead was placed initially in the posterolateral vein, but this was a small branch. Therefore the anterolateral vein was targeted and was positioned in a very stable position. The LV lead was a [employer], model #1456Q, 75 cm length, and serial #[id number]. The pacing threshold was 0.5 V at 0.5 milliseconds. Pacing impedance of 490 ohms. R-waves 12.6 mV. Ten-volt test was negative. The device then programmed to DDD mode at 50 bpm with biventricular pacing. The LV lead was used for pacing while the His bundle lead was capped. It was not removed but simply secured to the muscle. The DF pin of the ICD lead was also capped and secured to the underlying muscle. Therefore a biventricular pacemaker with an LV lead was placed in the subfascial pocket. The wound was closed in 3 layers and dressed per protocol. IMPRESSION: 1. Implantation of a biventricular pacemaker for management of complete heart block with high risk of 100% RV pacing. 2. Patient has a septal infarct with aneurysm. This is a small area where the overall LV function is greater than 60%. PLAN: IV antibiotics and device interrogation tomorrow. MMODL / IJN: [id number] /
[2018-07-21 00:45] VITALS: RESP 18
[2018-07-21] MEDS: ceFAZolin IN SWFI 2 GM/20 ML SYRINGE IVP SCH ×2 (04:10→08:41)
[2018-07-21 08:34] VITALS: BP 132/60; PULSE 65; TEMP 98.2
[2018-07-21] MEDS: MULTIVITAMINS, THERA 1 EACH TAB PO SCH (08:37)
[2018-07-21] MEDS: METOPROLOL SUCCINATE (ER) 50 MG TAB.ER.24H PO SCH (08:37)
[2018-07-21] MEDS: FAMOTIDINE 20 MG TAB PO SCH (08:38)
[2018-07-21] MEDS: SODIUM CHLORIDE 0.9% 1,000 ML IV SCH (08:38)
[2018-07-21] MEDS: ATORVASTATIN 40 MG TAB PO SCH (08:38)
[2018-07-21] MEDS: ASPIRIN 81 MG PO SCH (08:38)
--- NOTE | 2018-07-21 08:40 | XR ---
EXAMINATION TYPE: XR chest 2V DATE OF EXAM: 07/21/2018 COMPARISON: 07/19/2018 TECHNIQUE: PA and lateral views submitted. HISTORY: Lead placement FINDINGS: Postsurgical change and chronic thoracic cavity deformity involving the right chest with bilateral co nsolidation and pleural effusion. Postoperative change noted. Cardiomegaly stable. Interstitial patte rn may reflect chronic interstitial lung disease or congestion. There is a new cardiac device with mu ltiple leads and no sizable pneumothorax. Correlate for biventricular cardiac device. IMPRESSION: 1. No postprocedural pneumothorax. 2. Chronic pleural parenchymal changes as discussed above.
--- NOTE | 2018-07-21 09:42 | ECHOF ---
Referral Reason:bradycardia MEASUREMENTS -------- HEIGHT: 180.3 cm WEIGHT: 83.0 kg BP: RVIDd: 3.4 cm (< 3.3) IVSd: 1.0 cm (0.6 - 1.1) LVIDd: 3.5 cm (3.9 - 5.3) LVPWd: 1.1 cm (0.6 - 1.1) IVSs: 1.7 cm LVIDs: 2.0 cm LVPWs: 1.9 cm LAESV Index (A-L): 13.68 ml/m Ao Diam: 2.7 cm (2.0 - 3.7) AV Cusp: 1.5 cm (1.5 - 2.6) LA Diam: 3.4 cm (2.7 - 3.8) MV EXCURSION: 16.312 mm (> 18.000) MV EF SLOPE: 132 mm/s (70 - 150) EPSS: 0.5 cm MV E Lauro: 1.75 m/s MV DecT: 340 ms MV A Lauro: 1.32 m/s MV E/A Ratio: 1.33 AV maxP.17 mmHg AV meanP.05 mmHg FINDINGS -------- Resting bradycardia (HR<60bpm). This was a technically difficult study with suboptimal views. The left ventricular size is normal. Left ventricular wall thickness is normal. Overall left vent ricular systolic function is normal with, an EF between 60 - 65 %. The right ventricle is normal in size. Left atrium is normal size by volume. The right atrium was not well visualized. Lumason used Interatrial and interventricular septum intact. Normally functioning bioprosthetic valve. Moderate mitral annular calcification present. Mild mitral regurgitation is present. [id number] rate mitral stenosis. Trace tricuspid regurgitation present. Unable to estimate RVSP due to inadequate TR jet spectral do ppler profile. Trace/mild (physiologic) pulmonic regurgitation. There is no pericardial effusion. The patient has a history of open heart surgery. Patient has a history of valve surgery. CONCLUSIONS -------- 1. Resting bradycardia (HR<60bpm). 2. This was a technically difficult study with suboptimal views. 3. The left ventricular size is normal. 4. Left ventricular wall thickness is normal. 5. Overall left ventricular systolic function is normal with, an EF between 60 - 65 %. 6. The right ventricle is normal in size. 7. Left atrium is normal size by volume. 8. The right atrium was not well visualized. 9. Lumason used 10. Interatrial and interventricular septum intact. 11. Normally functioning AORTIC bioprosthetic valve. 12. Moderate mitral annular calcification present. 13. Mild mitral regurgitation is present. 14. [id number] mitral stenosis. 15. Trace tricuspid regurgitation present. 16. Unable to estimate RVSP due to inadequate TR jet spectral doppler profile. 17. Trace/mild (physiologic) pulmonic regurgitation. 18. There is no pericardial effusion. 19. The patient has a history of open heart surgery. 20. Patient has a history of valve surgery. TRIMMER HAND: Dee Jiménez RDCS
--- NOTE | 2018-07-21 11:32 | P.DS ---
Providers Date of admission: 07/19/18 13:56 Expected date of discharge: 07/21/18 Attending physician: Randall Hamlin Consults: 07/19/18 13:59 Consult Physician Routine Consulting Provider: Jose Juan Lua Consult Reason/Comments: Bradycardia Do you want consulting provider notified?: Yes Primary care physician: [facility] Hospital Course: 63-year-old male one of Dr. 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 Patient seen Dr. Queen test lead at [facility] and before his open heart surgery was seen by cosmetic sales advisor at [facility] for a can degree heart block might require pacemaker at the time and with his open heart surgery the severity of the bradycardia and second-degree had resolved done well for the last 20 have few years. Patient has been having worsening dyspnea and shortness of breath with minimal exertion with severe tiredness fatigue no chest pain but positive significant shortness of breath no cough or wheezes no syncope so far patient is very tired week and having fatigue symptoms. Ended up coming to the emergency department at [facility] his pulse on EKG and vehicle monitor technician was very slow running in the 30s symptomatic patient also had second-degree heart block. Laboratory testing showed mildly elevated calcium level chest x-ray showed interval development of left pleural effusion with a chronic pleural reaction and atelectasis with change post surgery from his right lung resection. Thyroid testing will be added patient will be hospitalized he monitor overnight will be seen cardiology CK with troponin will be done and if remained bradycardic symptomatic patient might require pacemaker. 07/20: Patient denies any new complaints. He denies any chest pain, shortness of breath, palpitations. He is scheduled for pacemaker implantation today with Dr. Ocasio. Multiple family members are at the bedside and all questions have been answered. Patient has been afebrile, heart rate was in the 40s, blood pressure 160/69, pulse ox 97% on room air. A TSH was 2.500. 07/21: Patient underwent successful pacemaker implantation yesterday with Dr. Ocasio. He has been seen by cardiology with plan for discharge home today. Patient has been provided prescription for Toprol-XL. Patient will be discharged home today in stable condition. Discharge diagnoses: 1 Severe dyspnea and shortness of breath: Most likely from severe bradycardia status post pacemaker implantation. 2 severe symptomatic bradycardia: With second-degree AV block with history of coronary artery disease. 3 hyperlipidemia: 4 mild hypercalcemia 5 BPH Discharge plan: Home Impression and plan of care have been directed as dictated by the signing physician. Mendy Padilla nurse practitioner acting as scribe for signing physician. Patient Condition at Discharge: Good Plan - Discharge Summary Discharge Rx Participant: No New Discharge Prescriptions: New Metoprolol Succinate (ER) [Toprol XL] 50 mg PO DAILY #30 tab.er.24h Continue Multivitamins, Thera [Multivitamin (formulary)] 1 tab PO DAILY Atorvastatin [Lipitor] 40 mg PO DAILY Aspirin 81 mg PO DAILY Discharge Medication List Aspirin 81 mg PO DAILY 06/02/18 [History] Atorvastatin [Lipitor] 40 mg PO DAILY 06/02/18 [History] Multivitamins, Thera [Multivitamin (formulary)] 1 tab PO DAILY 06/02/18 [History] Metoprolol Succinate (ER) [Toprol XL] 50 mg PO DAILY #30 tab.er.24h 07/21/18 [Rx] Follow up Appointment(s)/Referral(s): [facility] [Provider Group] - 07/28/18 10:00 am (Tuesday -device check only) Jose Juan Lua MD [STAFF PHYSICIAN] - 08/10/18 3:30 pm () Terence Regan DO [Primary Care Provider] - 1 Week (Spoke to elevator operator service. Office will call with appointment time.) Patient Instructions/Handouts: Pacemaker (DC) Activity/Diet/Wound Care/Special Instructions: Post Pacemaker instructions -No lifting left arm above shoulder height (Tshirt trick at night) -Sling does not need to be worn. (avoid frozen shoulder) -No driving until your test lead gives you the ok -No lifting greater than 5lbs with your left arm -Dressing is to stay dry. When bathing cover incision with a bag and no direct water contact. -Dressing is to stay in place. Do NOT remove it. They will do this at your follow up appointment -if any fevers or drainage occurs please notify your heart doctor Discharge Disposition: HOME SELF-CARE
--- NOTE | 2018-07-21 11:44 | P.PN ---
Subjective Progress Note Date: 07/21/18 This is a pleasant 63-year-old gentleman who has a past medical history significant for three-vessel coronary artery bypass grafting surgery with aortic valve replacement performed at [facility], performed a few years ago, he does also have a history of hyperlipidemia, he is a non diabetic, no hypertension, nonsmoker. Patient also has a history of a right- sided lung malignant tumor, for which she underwent AP resection with reconstruction on the right side, this was when he was a child, overall he has done very well. He follows with Dr. Queen at [facility]. Patient overall is quite physically active, and he usually wears his foot that all of the time to monitor the amount of exercise he is getting. [place], he states that he became quite short of breath just attempting to do minimally exertional activities. It was noted on his Cipro at that his heart rate was running in the 30-40 range, patient became concerned and came home. He denies having any chest discomfort, no dizziness or lightheadedness, but does state that he's feeling extremely tired over the past couple of weeks. According to the patient, he had been told in the past to have a very slow heartbeat, this was at the time prior to his bypass surgery, he was seen by an graphic design teacher at [place], who felt that his problem was more related to coronary artery disease, and subsequently the patient underwent bypass surgery. He never had a pacemaker placed at that time. His EKG on presentation here shows a second-degree heart block type II with a heart rate in the 40s. His chest x-ray shows interval development of a left- sided pleural effusion. Blood pressure 145/50 with a heart rate in the 30s, 99% on 2 L of oxygen. White blood cell count 8.9, hemoglobin 13.8, platelet count 223. D-dimer 0.4. Sodium 140, potassium 4.7, BUN 1 and creatinine 0.6. Sodium 140, potassium 4.7, BUN 13 and creatinine 0.6, magnesium 2.3, troponin 0.012. BNP level 706. At the time of my examination in the emergency room, patient is sitting up at bedside, denies any shortness of breath at present, does feel tired. Continues to be in a second-degree type II heart block with a heart rate in the 30s. 07/21/2018 Patient underwent implantation of a permanent pacemaker by Dr. Ocasio. He was seen and evaluated this morning and doing well. He denies any dizziness or lightheadedness, hemodynamically he is stable. The device was interrogated and is functioning appropriately. Chest x-ray does not reveal any evidence of a pneumothorax. 130/60 with a heart rate in the 60s, 98% on room air. Objective - Vital Signs Vital signs: Vital Signs Temp 98.2 F 07/21/18 08:34 Pulse 65 07/21/18 08:34 Resp 18 07/21/18 08:34 BP 132/60 07/21/18 08:34 Pulse Ox 98 07/21/18 08:34 Intake & Output 07/20/18 07/21/18 07/21/18 18:59 06:59 18:59 Intake Total 60 820 270 Output Total 200 Balance 60 820 70 Weight 83.4 kg Intake: IV 60 120 30 Invasive Line 1 20 40 10 Invasive Line 2 40 80 20 Intake, IV Titration 700 Amount Sodium Chloride 0.9% 1, 600 000 ml @ 50 mls/hr IV . Q20H [facility] Rx#:[id number] ceFAZolin 1,000 mg In 100 Sodium Chloride 0.9% 50 ml @ 100 mls/hr IVPB ONCE ONE Rx#:[id number] Oral 240 Output: Urine 200 Other: # Voids 1 - Exam PHYSICAL EXAMINATION: GENERAL: 63-year-old gentleman in no acute distress at the time of my examination HEENT: Head is atraumatic, normocephalic. Pupils equal, round. Sclera anicteric. Conjunctiva are clear. Mucous membranes of the mouth are moist. Neck is supple. There is no elevated jugular venous pressure. No carotid bruit is heard. HEART EXAMINATION: S1 and S2, positive aortic valve click is heard CHEST EXAMINATION: Lungs are clear with diminished air entry bilaterally, there is scar tissue noted on the posterior part of the lung at the scapula region on the right side. Pacemaker implantation dressing is dry and intact. ABDOMEN: Soft, nontender. Bowel sounds are heard. No organomegaly noted. EXTREMITIES: 2+ peripheral pulses with no evidence of peripheral edema and no calf tenderness noted. NEUROLOGIC patient is awake, alert and oriented 3 . . - Labs CBC & Chem 7: 07/19/18 10:30 07/19/18 10:30 Assessment and Plan Plan: Assessment and plan #1 symptoms of exertional dyspnea with associated fatigue and tiredness, could be secondary to severe bradycardia. Patient is in second degree type II heart block. Status post implantation of a permanent pacemaker. She #2 hyperlipidemia #3 known history of coronary artery disease with prior triple vessel coronary artery bypass grafting surgery and tissue aortic valve replacement a few years ago at [facility] #4 hyperlipidemia Plan From cardiology's perspective, patient may be able to be discharged home today. We'll make him a follow-up appointment with the device clinic and with Dr. Lua. DNP note has been reviewed, I agree with a documented findings and plan of care. Patient was seen and examined.
== END 2018-07-21 11:20 | disposition home or self-care (01) | DRG 243 ==
LOC: EC 09:47 → 3SCARD 13:56
PROVIDERS: ADMIT Internal Medicine Geriatric Medicine; ATTEND Internal Medicine Geriatric Medicine
PROC: 02HK3JZ Insertion of Pacemaker Lead into Right Ventricle, Percutaneous Approach (ICD-10-PCS; 2018-07-20)
PROC: 02H43JZ Insertion of Pacemaker Lead into Coronary Vein, Percutaneous Approach (ICD-10-PCS; 2018-07-20)
PROC: 0JH607Z Insertion of Cardiac Resynchronization Pacemaker Pulse Generator into Chest Subcutaneous Tissue and Fascia, Open Approach (ICD-10-PCS; principal; 2018-07-20 10:15)
PROC: 02H63JZ Insertion of Pacemaker Lead into Right Atrium, Percutaneous Approach (ICD-10-PCS; 2018-07-20 10:15)
PROC: 4B02XSZ Measurement of Cardiac Pacemaker, External Approach (ICD-10-PCS; 2018-07-21)
DX: I44.2 Atrioventricular block, complete (principal); J90 Pleural effusion, not elsewhere classified; J98.11 Atelectasis; I25.3 Aneurysm of heart; E83.52 Hypercalcemia; E78.5 Hyperlipidemia, unspecified; I25.10 Atherosclerotic heart disease of native coronary artery without angina pectoris; N40.0 Benign prostatic hyperplasia without lower urinary tract symptoms; J44.9 Chronic obstructive pulmonary disease, unspecified; Z79.82 Long term (current) use of aspirin; Z79.899 Other long term (current) drug therapy; Z95.1 Presence of aortocoronary bypass graft; Z95.3 Presence of xenogenic heart valve; Z90.2 Acquired absence of lung [part of]; Z85.828 Personal history of other malignant neoplasm of skin; Z85.118 Personal history of other malignant neoplasm of bronchus and lung
CPT/HCPCS: 33208; 33225; 36415; 71046; 80053; 82375; 82550; 83735; 83880; 83970; 84443; 84484; 85025; 85379; 85610; 85730; 93005; 93306; 99285

== ENCOUNTER → 2018-11-02 | Outpatient (CLI) | payer BC ==
[2018-11-02 12:00] LABS: African American GFR (CKD) 92.4 (60.0-200.0); Albumin 4.7 g/dL (3.80-4.90); Albumin/Globulin Ratio 2.24 (1.60-3.17); Anion Gap 7.6 mmol/L (4.00-12.00); Calcium 10.3 mg/dL (8.7-10.3); Carbon Dioxide 28.4 mmol/L (21.6-31.8); Chol/HDL Ratio 4.03; Globulin 2.1 g/dL (1.6-3.3); Total Bilirubin 0.4 mg/dL (0.2-1.2); Total Protein 6.8 g/dL (6.2-8.2)
== END | disposition home or self-care (01) ==
LOC: LABWHC1 06:57
PROVIDERS: ATTEND Internal Medicine Interventional Cardiology
DX: E78.2 Mixed hyperlipidemia (principal)
CPT/HCPCS: 36415; 80053; 80061

== ENCOUNTER → 2019-07-11 | Outpatient (CLI) | payer BC ==
[2019-07-11 16:13] LABS: Chol/HDL Ratio 4.72; LDL Cholesterol,Calculated 74.8 mg/dL (0.0-131.0); VLDL Calculation 44.2 mg/dL (5.00-40.00)
[2019-07-11 17:24] LABS: Hemoglobin A1C 5.7 % (4.0-6.0)
== END | disposition home or self-care (01) ==
LOC: LABWHC1 08:06
PROVIDERS: ATTEND Family Medicine
DX: E03.9 Hypothyroidism, unspecified (principal); K21.9 Gastro-esophageal reflux disease without esophagitis; J44.9 Chronic obstructive pulmonary disease, unspecified; E11.9 Type 2 diabetes mellitus without complications
CPT/HCPCS: 36415; 80061; 83036; 84450; 84460

== ENCOUNTER → 2020-08-13 | Outpatient (CLI) | payer MEDICARE, BC ==
[2020-08-13 19:34] LABS: Alternaria alternata IgE <0.10 kU/L; Aspergillus fumagatus IgE <0.10 kU/L
[2020-08-13 19:35] LABS: Birch IgE <0.10 kU/L; Maple (Box Elder) IgE <0.10 kU/L; Oak IgE <0.10 kU/L
[2020-08-13 19:36] LABS: Elm IgE <0.10 kU/L; Ragweed,Common IgE <0.10 kU/L
[2020-08-13 19:37] LABS: Cat Epith & Dander IgE <0.10 kU/L; Dermato. farinae IgE <0.10 kU/L; Red Top (Bentgrass) IgE <0.10 kU/L
[2020-08-13 19:38] LABS: Cladosporian herbarum IgE <0.10 kU/L; Cockroach IgE <0.10 kU/L; Dog Dander IgE <0.10 kU/L
== END | disposition home or self-care (01) ==
LOC: LABWHC1 07:22
PROVIDERS: ATTEND Internal Medicine Critical Care Medicine
DX: R05 Cough (principal)
CPT/HCPCS: 36415; 82785; 86003

== ENCOUNTER → 2020-09-30 | Outpatient (CLI) | payer MEDICARE, BC ==
--- NOTE | 2020-10-01 08:49 | CT ---
EXAMINATION TYPE: CT chest w con DATE OF EXAM: 09/30/2020 COMPARISON: Radiograph 05/30/2020 HISTORY: 65-year-old male Cough. Hx lung ca/sx as a child. Pt not able to raise RT arm. TECHNIQUE: Contiguous axial scanning of the chest after the administration of 100 mL of Isovue 300. Coronal/sagittal reconstructions performed. CT DLP: 415mGycm. Automatic exposure control utilized for a dose reduction. FINDINGS: There is chronic deformity to the left thoracic cage. Median sternotomy wires with prosthetic aortic valve. Left anterior chest wall AICD generator with ri ght atrial, right ventricular, and coronary sinus leads. 2 right atrial leads are noted. Heart normal size without pericardial effusion. Aorta normal caliber with moderate atherosclerotic arch calcifications. Bovine configuration to the a ortic arch. Possible [id number] atherosclerotic narrowing at the origin of the left subclavian artery. No thoracic lymphadenopathy by CT size criteria. Volume loss within the right upper lobe. Patchy and irregular subpleural opacities are present in the right upper lobe and to a lesser extent periphery of the right midlung. Some pleural calcifications right upper lobe. Focal groundglass is also present along the posterior right upper lobe, axial image 28. High-density nodularity at the right base with some septal thickening. Pleural parenchymal thickening along the periphery of the left base could be reassessed at follow-up. A tiny calcified granuloma periphery of the left midlung. Visualized upper abdomen shows no gross abnormality. Bones: The patient's median sternotomy is incompletely united. Right arm is down. Chronic bony deform ity to the upper to mid right rib cage. Mild to moderate degenerative disc disease mid to lower thora cic spine. IMPRESSION: 1. Right-sided bony rib cage deformity with volume loss in the right upper lobe. Focal areas of pleur al-parenchymal opacity suspected to represent scarring though a focal area of groundglass along the p osterior right upper lobe could represent an early pneumonia given the patient's cough. 2. Pleural parenchymal thickening at the left base probably scarring as well. 6 month follow-up CT to determine stability of both this and the right upper lobe findings. 3. High density nodularity at the right base could represent sequela of prior fungal or viral infecti on or sequela of prior aspiration.
== END | disposition home or self-care (01) ==
LOC: RADCTMAIN 15:39
PROVIDERS: ATTEND Internal Medicine Critical Care Medicine
DX: M95.4 Acquired deformity of chest and rib (principal); J92.9 Pleural plaque without asbestos; R05 Cough
CPT/HCPCS: 82565; 84520; 71260; 36415; Q9967

== ENCOUNTER 2023-08-13 10:13 | Emergency (ER) | payer MEDICARE ==
--- NOTE | 2023-08-13 11:15 | ED ---
Weakness HPI - General Chief complaint: Weakness Stated complaint: Confusion, dizziness Source: patient Mode of arrival: ambulatory Limitations: no limitations - History of Present Illness Initial comments: 68-year-old male with past medical history of coronary artery disease status post CABG, hypertension who presents to the emergency department with confusion and fever. states that symptoms have been going on since yesterday. Patient is admitting to a sore throat however has no other symptoms. He denies headache or visual changes. No head trauma. No sick contacts with similar symptoms. No neck pain. Denies cough or shortness of breath. No chest pain. Denies any abdominal pain. No changes in his bowel or bladder habits. Patient is on Eliquis. He denies black or bloody stools. No vomiting but admits to dry heaves. No other alleviating, precipitating or modifying factors - Related Data Home Medications Medication Instructions Recorded Confirmed Aspirin 81 mg PO DAILY 06/02/18 08/13/23 Atorvastatin [Lipitor] 40 mg PO DAILY 06/02/18 08/13/23 Apixaban [Eliquis] 5 mg PO BID 08/13/23 08/13/23 Cholecalciferol [Vitamin D3 (25 25 mcg PO DAILY 08/13/23 08/13/23 Mcg = 1000 Iu)] Furosemide [Lasix] 20 mg PO DAILY PRN 08/13/23 08/13/23 Metoprolol Succinate [Metoprolol 12.5 mg PO BID 08/13/23 08/13/23 Succinate ER] Multivit-Mins/Iron/Folic/Lycop 1 tab PO DAILY 08/13/23 08/13/23 [Centrum Men's Tablet] amLODIPine [Norvasc] 2.5 mg PO DAILY 08/13/23 08/13/23 Allergies Allergy/AdvReac Type Severity Reaction Status Date / Time No Known Allergies Allergy Verified 08/13/23 15:26 Review of Systems ROS Statement: Those systems with pertinent positive or pertinent negative responses have been documented in the HPI. ROS Other: All systems not noted in ROS Statement are negative. 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,skin CA History of Any Multi-Drug Resistant Organisms: None Reported Past Surgical History: Coronary Bypass/CABG, Heart Catheterization Additional Past Surgical History / Comment(s): CABG-2016- vessel w/ aortic valve replacement,rt lung lower lobe and partial rib removal at ages 5 and 6 r/t-malignant tumors on lung,rib,muscle,skin Juan F removed Past Anesthesia/Blood Transfusion Reactions: No Reported Reaction Additional Past Anesthesia/Blood Transfusion Reaction / Comment(s): no known hx of blood transfusions Past Psychological History: No Psychological Hx Reported Smoking Status: Never smoker Past Alcohol Use History: None Reported Past Drug Use History: None Reported - Past Family History Mother Family Medical History: No Reported History General Exam Limitations: altered mental status General appearance: alert, other (Confusion) Eye exam: Present: normal appearance, PERRL, EOMI. Absent: scleral icterus, conjunctival injection, periorbital swelling ENT exam: Present: normal exam, mucous membranes moist Neck exam: Present: normal inspection. Absent: tenderness, meningismus, lymphadenopathy Respiratory exam: Present: normal lung sounds bilaterally. Absent: respiratory distress, wheezes, rales, rhonchi, stridor Cardiovascular Exam: Present: regular rate, normal rhythm, normal heart sounds. Absent: systolic murmur, diastolic murmur, rubs, gallop, clicks GI/Abdominal exam: Present: soft, normal bowel sounds. Absent: distended, tenderness, guarding, rebound, rigid Extremities exam: Present: normal inspection, full ROM, normal capillary refill. Absent: tenderness, pedal edema, joint swelling, calf tenderness Neurological exam: Present: altered Psychiatric exam: Present: agitated Course Vital Signs 08/13/23 08/13/23 08/13/23 10:27 13:18 13:45 Temperature 100.4 F H 102.0 F H Pulse Rate 69 64 60 Respiratory 20 18 18 Rate Blood Pressure 91/62 79/52 117/92 O2 Sat by Pulse 98 97 98 Oximetry 08/13/23 08/13/23 08/13/23 15:21 16:07 16:20 Temperature 97.9 F Pulse Rate 60 60 60 Respiratory 22 22 18 Rate Blood Pressure 80/59 90/33 117/35 O2 Sat by Pulse 96 95 93 L Oximetry 08/13/23 08/13/23 08/13/23 16:25 16:32 16:38 Temperature 98.3 F Pulse Rate 60 60 60 Respiratory 20 20 18 Rate Blood Pressure 80/34 110/48 88/38 O2 Sat by Pulse 92 L 91 L 95 Oximetry 08/13/23 08/13/23 08/13/23 16:53 16:56 17:06 Temperature 98.0 F Pulse Rate 60 60 60 Respiratory 18 18 20 Rate Blood Pressure 90/54 89/35 85/40 O2 Sat by Pulse 97 97 97 Oximetry Procedures - Central Line Placement Right Femoral Consent Obtained: verbal consent, emergent situation Patient Placed on Monitor/Pulse Ox: Yes MD Prep: mask, gown, gloves Central Line Prep: Chlorhexidine scrub Local Anesthesia Used: Lidocaine 1% Amount of Anesthesia Used (mls): 8 Ultrasound Used for Placement: Yes Central Line Lumen Inserted: triple Bloods Obtained for Lab: No Central Line Position: good blood return, all ports aspirated, flushed, capped, sutured in place with nylon Dressing Applied: Tegaderm Patient Tolerated Procedure: well, no complications Medical Decision Making - Medical Decision Making Was pt. sent in by a medical professional or institution (, PA, SOFTWARE PRODUCT MANAGER, urgent care, hospital, or penitentiary...) When possible be specific @ -No Did you speak to anyone other than the patient for history (EMS, parent, family, police, friend...)? What history was obtained from this source @ -Spoke with the for history Did you review nursing and triage notes (agree or disagree)? Why? @ -I reviewed and agree with nursing and triage notes Were old charts reviewed (outside hosp., previous admission, EMS record, old EKG, old radiological studies, urgent care reports/EKG's, penitentiary records)? Report findings @ -No old charts were reviewed Differential Diagnosis (chest pain, altered mental status, abdominal pain women, abdominal pain men, vaginal bleeding, weakness, fever, dyspnea, syncope, headache, dizziness, GI bleed, back pain, seizure, CVA, palpatations, mental health, musculoskeletal)? @ -Differential Fever: Pneumonia, viral URI, endocarditis, myocarditis, pericarditis, otitis, sinusitis, peritonsillar Abscess, retropharyngeal Abscess, epiglottitis, peritonitis, appendicitis, Lin cystitis, diverticulitis, hepatitis, colitis, UTI, PID, TOA, pyelonephritis, prostatitis, epididymitis, meningitis, encephalitis, pulmonary embolism, CVA, thyroid storm, pancreatitis, adrenal crisis, cavernous sinus thrombosis, this is not meant to be an all-inclusive list. EKG interpreted by me (3pts min.). @ -Yes and demonstrates ventricular pacemaker with underlying atrial flutter. Rate of 60. QRS 116. QTc of 439. Pacemaker captures appropriately X-rays interpreted by me (1pt min.). @ -Yes and demonstrates patchy opacities concerning for possible venous congestion versus chronic pulmonary fibrosis CT interpreted by me (1pt min.). @ -None done U/S interpreted by me (1pt. min.). @ -Yes and demonstrates acute cholecystitis What testing was considered but not performed or refused? (CT, X-rays, U/S, labs)? Why? @ -CT was considered however patient does have acute kidney injury What meds were considered but not given or refused? Why? @ -None Did you discuss the management of the patient with other professionals (basilia ham i.e. , PA, SOFTWARE PRODUCT MANAGER, lab, RT, psych nurse, social work coordinator, infant toddler lead teacher, teacher, contracting officer, case management coordinator)? Give summary @ -Discussed the case with Dr. Phan, on-call surgeon. He is uncomfortable taking the patient to the operating room due to patient's elevated liver enzymes and concern for obstructive process which may need stent Was smoking cessation discussed for >3mins.? @ -No Was critical care preformed (if so, how long)? @ -Yes, 40 minutes for administration of vasopressors Were there social determinants of health that impacted care today? How? (Homelessness, low income, unemployed, alcoholism, drug addiction, transportation, low edu. Level, literacy, decrease access to med. care, longterm, rehab)? @ -No Was there de-escalation of care discussed even if they declined (Discuss DNR or withdrawal of care, Hospice)? DNR status @ -No What co-morbidities impacted this encounter? (DM, HTN, Smoking, COPD, CAD, Cancer, CVA, ARF, Chemo, Hep., AIDS, mental health diagnosis, sleep apnea, morbid obesity)? @ -Coronary artery disease status post CABG, valvular heart disease status post aortic valve repair Was patient admitted / discharged? Hospital course, mention meds given and route , prescriptions, significant lab abnormalities, going to OR and other pertinent info. @ -Upon arrival patient was seen and evaluated in room 11. Thorough history and physical exam was performed. IV access was established. Laboratory studies are conducted and reviewed. Patient does receive a dose of Tylenol however has increase in temperature up to 102 degrees. He is then given a dose of IV M otrin to keep him n.p.o. Patient does have elevated lactic acid level and white blood cell count. Patient is empirically given a dose of Zosyn. Upper respiratory swabs and strep swab is negative. Patient is denying any abdominal pain but does have elevated liver enzymes. Ultrasound was performed which demonstrates acute cholecystitis. There is concern for cholangitis due to his elevated liver enzymes. I did call and speak with Dr. Phan, surgeon on-call. He is not agreeable to accepting admission of the patient due to his elevated liver enzymes with concern for cholangitis. GI service is not available at our facility. At this time patient will require transfer to higher level of care. Called and spoke with [facility] who does not have capacity to take care of the patient. I then spoke with [facility] who agrees to accept the patient. Accepting physician is Dr. Roy. COBRA forms are signed. Patient is transferred in stable condition with a guarded prognosis Prior to transfer the patient does have a decrease in his blood pressures. Because of this I did place a right femoral central line under emergent condition and administered Levophed. Patient cannot receive any more normal saline in the setting of his infection due to his history of congestive heart failure, chest x-ray which demonstrates volume overload and the patient starting to require oxygen. Undiagnosed new problem with uncertain prognosis? @ -No Drug Therapy requiring intensive monitoring for toxicity (Heparin, Nitro, Insulin, Cardizem)? @ -No Were any procedures done? @ -Central line right femoral Diagnosis/symptom? @ -Acute pyrexia, acute encephalopathy, acute cholecystitis with ascending cholangitis, transaminitis, lactic acidosis, leukocytosis Acute, or Chronic, or Acute on Chronic? @ -Acute Uncomplicated (without systemic symptoms) or Complicated (systemic symptoms)? @ -Complicated Side effects of treatment? @ -No Exacerbation, Progression, or Severe Exacerbation? @ -No Poses a threat to life or bodily function? How? (Chest pain, [place], DE, pneumonia, PE, COPD, DKA, ARF, appy, cholecystitis, CVA, Diverticulitis, Homicidal, Suicidal, threat to staff... and all critical care pts) @ -Yes as patient has life-threatening infection - Lab Data Result diagrams: 08/13/23 11:15 08/13/23 11:15 Lab Results 08/13/23 08/13/23 08/13/23 Range/Units 11:15 11:15 11:15 WBC 15.1 H (3.8-10.6) k/uL RBC 4.40 (4.30-5.90) m/uL Hgb 13.8 (13.0-17.5) gm/dL Hct 42.2 (39.0-53.0) % MCV 96.1 (80.0-100.0) fL MCH 31.4 (25.0-35.0) pg MCHC 32.6 (31.0-37.0) g/dL RDW 13.8 (11.5-15.5) % Plt Count 143 L (150-450) k/uL MPV 10.0 Neutrophils % (Manual) 78 % Band Neuts % (Manual) 15 % Lymphocytes % (Manual) 1 % Monocytes % (Manual) 1 % Metamyelocytes % 6 % Neutrophils # (Manual) 14.00 H (1.3-7.7) k/uL Lymphocytes # (Manual) 0.15 L (1.0-4.8) k/uL Monocytes # (Manual) 0.15 (0-1.0) k/uL Metamyelocytes # (Man) 0.91 H (0) k/uL Nucleated RBCs 0 (0-0) /100 WBC Manual Slide Review Performed RBC Morphology Normal PT (10.0-12.5) sec INR (<1.2) Sample Site ABG pH (7.35-7.45) ABG pCO2 (35-45) mmHg ABG pO2 (83-108) mmHg ABG HCO3 (21-25) mmol/L ABG Total CO2 (19-24) mmol/L ABG O2 Saturation (94-97) % ABG Base Excess mmol/L Prashanth Test FiO2 % Sodium 132 L (137-145) mmol/L Potassium 5.2 H (3.5-5.1) mmol/L Chloride 99 (98-107) mmol/L Carbon Dioxide 24 (22-30) mmol/L Anion Gap 9 mmol/L BUN 43 H (9-20) mg/dL Creatinine 1.59 H (0.66-1.25) mg/dL Est GFR (CKD-EPI)AfAm 51 (>60 ml/min/1.73 sqM) Est GFR (CKD-EPI)NonAf 44 (>60 ml/min/1.73 sqM) Glucose 124 H (74-99) mg/dL Lactic Ac Sepsis Rflx Plasma Lactic Acid Marbin 3.0 H* (0.7-2.0) mmol/L Calcium 9.2 (8.4-10.2) mg/dL Total Bilirubin 4.1 H (0.2-1.3) mg/dL AST 215 H (17-59) U/L ALT 182 H (4-49) U/L Alkaline Phosphatase 88 (38-126) U/L NT-Pro-B Natriuret Pep pg/mL Total Protein 6.3 (6.3-8.2) g/dL Albumin 4.0 (3.5-5.0) g/dL Influenza Type A (PCR) (Not Detectd) Influenza Type B (PCR) (Not Detectd) RSV (PCR) (Not Detectd) SARS-CoV-2 (PCR) (Not Detectd) Group A Strep (PCR) (Not Detectd) 08/13/23 08/13/23 08/13/23 Range/Units 11:15 11:15 11:33 WBC (3.8-10.6) k/uL RBC (4.30-5.90) m/uL Hgb (13.0-17.5) gm/dL Hct (39.0-53.0) % MCV (80.0-100.0) fL MCH (25.0-35.0) pg MCHC (31.0-37.0) g/dL RDW (11.5-15.5) % Plt Count (150-450) k/uL MPV Neutrophils % (Manual) % Band Neuts % (Manual) % Lymphocytes % (Manual) % Monocytes % (Manual) % Metamyelocytes % % Neutrophils # (Manual) (1.3-7.7) k/uL Lymphocytes # (Manual) (1.0-4.8) k/uL Monocytes # (Manual) (0-1.0) k/uL Metamyelocytes # (Man) (0) k/uL Nucleated RBCs (0-0) /100 WBC Manual Slide Review RBC Morphology PT (10.0-12.5) sec INR (<1.2) Sample Site ABG pH (7.35-7.45) ABG pCO2 (35-45) mmHg ABG pO2 (83-108) mmHg ABG HCO3 (21-25) mmol/L ABG Total CO2 (19-24) mmol/L ABG O2 Saturation (94-97) % ABG Base Excess mmol/L Prashanth Test FiO2 % Sodium (137-145) mmol/L Potassium (3.5-5.1) mmol/L Chloride (98-107) mmol/L Carbon Dioxide (22-30) mmol/L Anion Gap mmol/L BUN (9-20) mg/dL Creatinine (0.66-1.25) mg/dL Est GFR (CKD-EPI)AfAm (>60 ml/min/1.73 sqM) Est GFR (CKD-EPI)NonAf (>60 ml/min/1.73 sqM) Glucose (74-99) mg/dL Lactic Ac Sepsis Rflx Plasma Lactic Acid Marbin (0.7-2.0) mmol/L Calcium (8.4-10.2) mg/dL Total Bilirubin (0.2-1.3) mg/dL AST (17-59) U/L ALT (4-49) U/L Alkaline Phosphatase (38-126) U/L NT-Pro-B Natriuret Pep 59384 pg/mL Total Protein (6.3-8.2) g/dL Albumin (3.5-5.0) g/dL Influenza Type A (PCR) Not Detected (Not Detectd) Influenza Type B (PCR) Not Detected (Not Detectd) RSV (PCR) Not Detected (Not Detectd) SARS-CoV-2 (PCR) Not Detected (Not Detectd) Group A Strep (PCR) NOT DETECTED (Not Detectd) 08/13/23 08/13/23 08/13/23 Range/Units 11:34 12:29 15:15 WBC (3.8-10.6) k/uL RBC (4.30-5.90) m/uL Hgb (13.0-17.5) gm/dL Hct (39.0-53.0) % MCV (80.0-100.0) fL MCH (25.0-35.0) pg MCHC (31.0-37.0) g/dL RDW (11.5-15.5) % Plt Count (150-450) k/uL MPV Neutrophils % (Manual) % Band Neuts % (Manual) % Lymphocytes % (Manual) % Monocytes % (Manual) % Metamyelocytes % % Neutrophils # (Manual) (1.3-7.7) k/uL Lymphocytes # (Manual) (1.0-4.8) k/uL Monocytes # (Manual) (0-1.0) k/uL Metamyelocytes # (Man) (0) k/uL Nucleated RBCs (0-0) /100 WBC Manual Slide Review RBC Morphology PT 17.0 H (10.0-12.5) sec INR 1.7 H (<1.2) Sample Site ABG pH (7.35-7.45) ABG pCO2 (35-45) mmHg ABG pO2 (83-108) mmHg ABG HCO3 (21-25) mmol/L ABG Total CO2 (19-24) mmol/L ABG O2 Saturation (94-97) % ABG Base Excess mmol/L Prashanth Test FiO2 % Sodium (137-145) mmol/L Potassium (3.5-5.1) mmol/L Chloride (98-107) mmol/L Carbon Dioxide (22-30) mmol/L Anion Gap mmol/L BUN (9-20) mg/dL Creatinine (0.66-1.25) mg/dL Est GFR (CKD-EPI)AfAm (>60 ml/min/1.73 sqM) Est GFR (CKD-EPI)NonAf (>60 ml/min/1.73 sqM) Glucose (74-99) mg/dL Lactic Ac Sepsis Rflx Y Plasma Lactic Acid Marbin 3.3 H* (0.7-2.0) mmol/L Calcium (8.4-10.2) mg/dL Total Bilirubin (0.2-1.3) mg/dL AST (17-59) U/L ALT (4-49) U/L Alkaline Phosphatase (38-126) U/L NT-Pro-B Natriuret Pep pg/mL Total Protein (6.3-8.2) g/dL Albumin (3.5-5.0) g/dL Influenza Type A (PCR) (Not Detectd) Influenza Type B (PCR) (Not Detectd) RSV (PCR) (Not Detectd) SARS-CoV-2 (PCR) (Not Detectd) Group A Strep (PCR) (Not Detectd) 08/13/23 08/13/23 Range/Units 15:27 16:03 WBC (3.8-10.6) k/uL RBC (4.30-5.90) m/uL Hgb (13.0-17.5) gm/dL Hct (39.0-53.0) % MCV (80.0-100.0) fL MCH (25.0-35.0) pg MCHC (31.0-37.0) g/dL RDW (11.5-15.5) % Plt Count (150-450) k/uL MPV Neutrophils % (Manual) % Band Neuts % (Manual) % Lymphocytes % (Manual) % Monocytes % (Manual) % Metamyelocytes % % Neutrophils # (Manual) (1.3-7.7) k/uL Lymphocytes # (Manual) (1.0-4.8) k/uL Monocytes # (Manual) (0-1.0) k/uL Metamyelocytes # (Man) (0) k/uL Nucleated RBCs (0-0) /100 WBC Manual Slide Review RBC Morphology PT (10.0-12.5) sec INR (<1.2) Sample Site r brach ABG pH 7.43 (7.35-7.45) ABG pCO2 29 L (35-45) mmHg ABG pO2 70 L (83-108) mmHg ABG HCO3 19 L (21-25) mmol/L ABG Total CO2 20 (19-24) mmol/L ABG O2 Saturation 95.7 (94-97) % ABG Base Excess -4.2 mmol/L Prashanth Test na FiO2 21 % Sodium (137-145) mmol/L Potassium (3.5-5.1) mmol/L Chloride (98-107) mmol/L Carbon Dioxide (22-30) mmol/L Anion Gap mmol/L BUN (9-20) mg/dL Creatinine (0.66-1.25) mg/dL Est GFR (CKD-EPI)AfAm (>60 ml/min/1.73 sqM) Est GFR (CKD-EPI)NonAf (>60 ml/min/1.73 sqM) Glucose (74-99) mg/dL Lactic Ac Sepsis Rflx Y Plasma Lactic Acid Marbin (0.7-2.0) mmol/L Calcium (8.4-10.2) mg/dL Total Bilirubin (0.2-1.3) mg/dL AST (17-59) U/L ALT (4-49) U/L Alkaline Phosphatase (38-126) U/L NT-Pro-B Natriuret Pep pg/mL Total Protein (6.3-8.2) g/dL Albumin (3.5-5.0) g/dL Influenza Type A (PCR) (Not Detectd) Influenza Type B (PCR) (Not Detectd) RSV (PCR) (Not Detectd) SARS-CoV-2 (PCR) (Not Detectd) Group A Strep (PCR) (Not Detectd) Disposition Clinical Impression: Acute encephalopathy, Acute cholecystitis, Cholangitis, Pyrexia Disposition: OTHER INSTITUTION NOT DEFINED Condition: Serious Is patient prescribed a controlled substance at d/c from ED?: No Referrals: Terence Regan DO [Primary Care Provider] - 1-2 days Time of Disposition: 15:29 - Out of Hospital Transfer - Req. Specs Out of Hospital Transfer - Requested Specifics: Other Emergency Center ([facility])
[2023-08-13] MEDS: ACETAMINOPHEN TAB 500 MG TAB PO STA (11:54)
[2023-08-13] MEDS: SODIUM CHLORIDE 0.9% 1,000 ML IV STA (11:54)
--- NOTE | 2023-08-13 12:17 | CT ---
EXAMINATION TYPE: CT brain wo con CT DLP: 1094 mGycm, Automated exposure control for dose reduction was used. DATE OF EXAM: 08/13/2023 12:10 PM COMPARISON: None.. CLINICAL INDICATION:Male, 68 years old with history of confusion, confusion TECHNIQUE: Brain: Axial CT images of the brain were obtained with coronal and sagittal reformats created and rev iewed. Contrast used: None. Oral contrast used: None. FINDINGS: Extra-axial spaces: No abnormal extra-axial fluid collections. Basilar cisterns are patent. Ventricular system: Within normal limits. Cerebral parenchyma: No increased attenuation to suggest acute intraparenchymal hemorrhage. The gra y-white matter interface appears maintained. No significant atrophy. White matter unremarkable by C T. Cerebellum: No acute abnormality. Mass effect: No evidence of mass effect or midline shift. Intracranial vasculature: Atherosclerotic calcifications of the larger arteries near the skull base. Soft tissues: No acute or concerning abnormality. Visualized orbits: Orbital contents appear grossly intact. Calvarium/osseous structures: No evidence of calvarial fracture. Developmental incomplete fusion of t he posterior arch C1. Paranasal sinuses and mastoid air cells: Clear. There is mild S-shaped nasal septal deviation. MRI is more sensitive for detecting acute processes such as infarct, and may be considered if clinica lly warranted. IMPRESSION: No acute intracranial CT abnormality.
[2023-08-13 12:26] LABS: INR 1.7 (<1.2)
[2023-08-13 12:33] LABS: ALT 182 U/L (4-49); AST 215 U/L (17-59); African American GFR (CKD) 51 (>60 ml/min/1.73 sqM); Alkaline Phosphatase 88 U/L (38-126); Anion Gap 9 mmol/L; Blood Urea Nitrogen 43 mg/dL (9-20); Calcium 9.2 mg/dL (8.4-10.2); Carbon Dioxide 24 mmol/L (22-30); Chloride 99 mmol/L (98-107); Glucose 124 mg/dL (74-99); Non-African American GFR(CKD) 44 (>60 ml/min/1.73 sqM); Potassium 5.2 mmol/L (3.5-5.1); Sodium 132 mmol/L (137-145); Total Bilirubin 4.1 mg/dL (0.2-1.3); Total Protein 6.3 g/dL (6.3-8.2)
[2023-08-13 12:38] LABS: HCT 42.2 % (39.0-53.0); HGB 13.8 gm/dL (13.0-17.5); MCH 31.4 pg (25.0-35.0); MCHC 32.6 g/dL (31.0-37.0); MCV 96.1 fL (80.0-100.0); Platelet Count 143 k/uL (150-450); RDW 13.8 % (11.5-15.5); WBC 15.1 k/uL (3.8-10.6)
--- NOTE | 2023-08-13 13:03 | XR ---
EXAMINATION TYPE: XR chest 2V DATE OF EXAM: 08/13/2023 COMPARISON: 11/23/2022 TECHNIQUE: PA and lateral views submitted. HISTORY: Fever FINDINGS: Chronic rib cage deformity on the right with median sternotomy changes, cardiomegaly and cardiac paul ce. There is a pleural thickening or small bilateral pleural effusion stable. Interstitial pattern is unchanged. No new area of consolidation. IMPRESSION: 1. Chronic pleural-parenchymal changes are similar to prior exam. Correlate for chronic interstitial lung disease or venous congestion.
[2023-08-13] MEDS: SODIUM CHLORIDE 0.9% 1,000 ML IV ONE ×2 (13:27→13:44)
[2023-08-13] MEDS: PIPERACILLIN-TAZOBACTAM 3.375 GM in SODIUM CHLORIDE 0.9% 100 ML IVPB STA (13:28)
[2023-08-13 13:34] LABS: Band Neutrophils % 15 %; Lymphocytes # (M) 0.15 k/uL (1.0-4.8); Metamyelocytes # (M) 0.91 k/uL (0); Metamyelocytes % 6 %; Monocytes # (M) 0.15 k/uL (0-1.0); Neutrophils % (M) 78 %; Nucleated Red Blood Cells 0 /100 WBC (0-0); Total Cells Counted 200
[2023-08-13 13:35] LABS: RBC Morphology Normal
[2023-08-13 13:46] VITALS: PULSE 60
--- NOTE | 2023-08-13 14:05 | US ---
EXAMINATION TYPE: US gallbladder DATE OF EXAM: 08/13/2023 COMPARISON: NONE CLINICAL INDICATION: Male, 68 years old with history of fever, transaminitis; Elevated labs, fever TECHNIQUE: Multiple sonographic images of the right upper quadrant are obtained. FINDINGS: EXAM MEASUREMENTS: Liver Length: 17.0 cm Gallbladder Wall: 0.6 cm CBD: 0.6 cm Right Kidney: 11.6 x 5.8 x 6.6 cm DOWNSTAIRS MAID NOTES: Pancreas: 2mm panc duct visualized, tail obscured by overlying bowel gas Liver: wnl Gallbladder: Distended with thickened wall and pericholecystic fluid Evidence for sonographic Freire's sign: No CBD: wnl Right Kidney: wnl IMPRESSION: 1. Gallbladder is distended with thickened wall and pericholecystic fluid compatible acute cholecysti tis. No evidence of gallstones.
[2023-08-13] MEDS: IBUPROFEN IV 600 MG in SODIUM CHLORIDE 0.9% 250 ML IV STA (14:10)
[2023-08-13] MEDS: SODIUM CHLORIDE 0.9% 1,000 ML IV SCH (15:30)
[2023-08-13 15:32] LABS: ABG Base Excess -4.2 mmol/L; ABG HCO3 19 mmol/L (21-25); ABG Oxygen Saturation 95.7 % (94-97); ABG PCO2 29 mmHg (35-45); ABG PH 7.43 (7.35-7.45); ABG PO2 70 mmHg (83-108); ABG TCO2 20 mmol/L (19-24)
[2023-08-13] MEDS: NOREPINEPHRINE 8 MG in SODIUM CHLORIDE 0.9% 250 ML IV ONE (15:58)
[2023-08-13 17:09] VITALS: BP 85/40; RESP 20; TEMP 98
== END 2023-08-13 17:06 | disposition other institution (70) ==
LOC: EC 10:13
DX: G93.40 Encephalopathy, unspecified (principal); K83.09 Other cholangitis; K81.0 Acute cholecystitis
CPT/HCPCS: 51798; 36415; 36600; 93005; 87651; 83880; 80053; 82805; 83605; 85025; 85610; 87040; 87077; 87186; 87636; 71046; 76705; 70450; 99291; 96365; 96367 ×2; 96361 ×2; 36556; J2543; J1741